=== PATIENT | male | born 1995 | race Caucasian/White ===

== ENCOUNTER 2022-04-05 11:31 | Emergency (ER) | payer BC, SELFPAY ==
--- NOTE | ~2022-04-05 | XR_ITS ---
EXAMINATION: XR abdomen/kub 1V DATE: 04/05/2022 11:58 INDICATION: Abdominal pain. Diarrhea. TECHNIQUE: A supine view of the abdomen was obtained. COMPARISON: None. FINDINGS: There are no dilated loops of bowel. There is a small volume of stool in the colon. There i s a phlebolith in right pelvis. IMPRESSION: 1. Normal bowel gas pattern. Reviewed, dictated and finalized at location A.
--- NOTE | 2022-04-05 11:38 | ED.ABDPAIN ---
HPI - Abdominal Pain General Chief Complaint: Abdominal Pain Stated Complaint: abdominal pain Time Seen by Provider: 04/05/22 12:00 Source: patient and RN notes reviewed Mode of arrival: ambulatory Limitations: no limitations History of Present Illness HPI narrative: 26-year-old female presents with concern for intermittent lower abdominal cramping for approximately 3 days. He reports the pain is intermittent, denies any exacerbating or relieving factors. Reports when he has the pain he has small amounts of diarrhea. He denies any history of constipation or recent constipation. He denies fever, body aches, chills, sweats. He denies nausea, vomiting, decreased appetite. He denies upper respiratory symptoms. He denies known sick contacts. MD elicited complaint: abdominal pain Related Data Allergies Allergy/AdvReac Type Severity Reaction Status Date / Time PCN Allergy Mild Uncoded 04/12/08 13:45 AMOXICILLIN TRIHYDRATE Allergy Unknown Uncoded 04/24/18 12:02 Review of Systems Review of Systems: CONSTITUTIONAL: Denies malaise, chills, sweats, or fever. ENT: Denies rhinorrhea, congestion, sinus pain, otalgia or sore throat. CARDIOVASCULAR: Denies chest pain, palpitations, or edema. RESPIRATORY: Denies cough or dyspnea. GASTROINTESTINAL: Denies abdominal pain, nausea, vomiting, diarrhea, bloody, or mucous stools. GENITOURINARY: Denies dysuria or hematuria. MUSCULOSKELETAL: Denies myalgia. NEUROLOGIC: Denies headache. All systems reviewed & are unremarkable except as noted in HPI and below PMFSH Comments At time of signature, agree with nursing past medical, surgical, social and family history. There is no relevant family history pertinent to the presenting complaint Exam Narrative: GENERAL: Well-appearing, well-nourished, and in no acute distress. HEAD: Normocephalic, atraumatic. EYES: PERRLA, conjunctivae clear, and EOMI. ENT: Nares clear. Mucous membranes moist. NECK: Supple. No lymphadenopathy CHEST: Speaks in full sentences. No respiratory distress. HEART: Regular rate and rhythm. ABDOMEN: Soft, flat, nondistended. Mild bilateral lower abdominal tenderness to palpation. No guarding, rebound tenderness, or rigidity. No pulsatile masses. Bowel sounds present in all four quadrants. No organomegaly. Negative Sarmiento?s sign. No periumbilical tenderness. No Supra public tenderness or distension. Good femoral pulses bilaterally. No hernia noted. No scars or surface trauma. SKIN: Warm, dry, no rash. NEURO: Alert and oriented x3. PSYCH: Normal mood and affect Course Course Emergency Course: Discussed limited diagnostic capability at [facility] for abdominal pain. Discussed exam and x-ray findings. Discussed options to transfer to emergency room or follow-up with primary care doctor. Patient would like to follow-up with his primary care doctor, he understands reasons to go the emergency room symptoms worsen in the meantime. Patient is aware of diagnosis, understands and agrees to treatment plan. Anticipatory guidance given. Patient agrees to follow-up as directed and is aware of reasons to seek care at the emergency department. Portions of this record may have been created with voice recognition software Level of Care: Express Care Visit Vital Signs Vital signs: Vital Signs Temperature 98.4 F 04/05/22 11:40 Pulse Rate 92 04/05/22 11:40 Respiratory Rate 16 04/05/22 11:40 Blood Pressure 126/71 04/05/22 11:40 Pulse Oximetry 100 04/05/22 11:40 Oxygen Delivery Room Air 04/05/22 11:40 Temperature 98.4 F 04/05/22 11:45 Pulse Rate 92 04/05/22 11:45 Respiratory Rate 16 04/05/22 11:45 Blood Pressure 126/71 04/05/22 11:45 Pulse Oximetry 100 04/05/22 11:45 Oxygen Delivery Room Air 04/05/22 11:45 Reviewed. MDM - Abdominal Pain MDM Narrative Medical decision making narrative: Exam findings and imaging show no acute concerns or changes; patient is non-toxic appearing and is in
[2022-04-05 11:40] VITALS: BP 126/71; PULSE 92; RESP 16; TEMP 36.9; O2SAT 100
[2022-04-05 11:45] VITALS: BP 126/71; PULSE 92; RESP 16; TEMP 36.9; O2SAT 100
== END 2022-04-05 12:30 | disposition home or self-care (01) ==
PROVIDERS: Emergency Provider Nurse Practitioner
DX: R10.30 Lower abdominal pain, unspecified (principal)
CPT/HCPCS: 74018; 99213; G0463